=== PATIENT | female | born 1970 | race Caucasian/White ===

== ENCOUNTER → 2021-12-26 11:31 | Outpatient (CLI) | payer BC, SELFPAY ==
--- NOTE | ~2021-12-26 | XR_ITS ---
XR hand RT 2V DATE: 01/03/2022 07:54 INDICATION: Pain TECHNIQUE: 3 views COMPARISON: None FINDINGS: There is bilateral joint space target the triscaphe joint. There is mild osteoarthritis at some of the interphalangeal joints. No fracture, dislocation, periosteal reaction or bone destruction, erosive change or chondrocalcinosi s. 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
--- NOTE | ~2021-12-26 | XR_ITS ---
XR wrist RT 2V DATE: 12/26/2021 11:41 INDICATION: Right wrist pain TECHNIQUE: 4 views COMPARISON: None FINDINGS: There is severe joint space narrowing at the triscaphe joint. There is mild periarticular s purring at the first carpometacarpal joint. No fracture or dislocation, periosteal reaction or bone destruction. IMPRESSION: Osteoarthritis Reviewed, dictated and finalized at location A. GER STARS IMPRESSION: Osteoarthritis
== END ==
PROVIDERS: PCP Nurse Practitioner; Visit Provider Nurse Practitioner
DX: M19.031 Primary osteoarthritis, right wrist (principal)
CPT/HCPCS: 73100; 73120